=== PATIENT | female | born 1955 | race Caucasian/White ===

== ENCOUNTER 2017-01-02 04:56 | Emergency (ER) | payer MEDICARE ==
[2017-01-02 04:15] LABS: BASOPHILS 0.3 %; BASOPHILS ABSOLUTE 0.02 10/3/uL (0.0-0.16); EOSINOPHILS 0.8 %; EOSINOPHILS ABSOLUTE 0.05 10/3/uL (0.0-0.53); HEMATOCRIT 30.6 % (36.0-48.0); HEMOGLOBIN 9.7 g/dL (12.0-16.0); IMMATURE GRANULOCYTES 0.2 %; IMMATURE GRANULOCYTES ABSOLUTE 0.01 10/3/uL (0.0-0.11); LYMPHOCYTES 6.6 %; LYMPHOCYTES ABSOLUTE 0.39 10/3/uL (0.67-4.30); MEAN CORPUS HGB CONC 31.7 g/dL (32.0-36.0); MEAN CORPUSCULAR HEMOGLOB 24.5 pg (26.0-34.0); MEAN PLATELET VOLUME 9.5 fL (9.2-13.0); MONOCYTES 7.9 %; MONOCYTES ABSOLUTE 0.47 10/3/uL (0.21-1.20); NEUTROPHILS 84.2 %; NEUTROPHILS ABSOLUTE 4.99 10/3/uL (2.02-8.40); PLATELET COUNT 279 10/3/uL (150-400); RBC DISTRIBUTION WIDTH 14.6 % (12.0-16.0); RED CELL COUNT 3.96 10/6/uL (4.0-5.6)
[2017-01-02 04:17] LABS: ER CBC TAT 0 Hrs 16 Mins; MANUAL DIFF NO %; MEAN CORPUSCULAR VOLUME 77.3 fL (80-100); WHITE BLOOD CELLS 5.9 10/3/uL (4.5-10.5)
[2017-01-02 04:30] LABS: A/G RATIO 1.1 (0.7-1.9); ALBUMIN 3.5 G/DL (3.5-5.0); ALKALINE PHOSPHATASE 271 U/L (45-117); BUN (BLOOD UREA NITROGEN) 11 MG/DL (6-23); CALCIUM, SERUM 8.4 MG/DL (8.5-10.4); CHLORIDE, SERUM 105 MMOL/L (96-112); CO2 (CARBON DIOXIDE) 25 MMOL/L (24-34); CREATININE 0.75 MG/DL (0.55-1.02); GFR AFRICAN AMERICAN 100 ML/MIN (>=60); GFR NON AFRICAN AMERICAN 86 ML/MIN (>=60); GLOBULIN 3.3 G/DL (2.5-4.1); GLUCOSE, SERUM 99 MG/DL (60-99); SGOT(AST) 422 U/L (5-40); SGPT(ALT) 226 U/L (5-65); SODIUM, SERUM 139 MMOL/L (135-148); TOTAL BILIRUBIN 0.8 MG/DL (0-1.2); TOTAL PROTEIN 6.8 G/DL (6.0-8.5); TROPONIN I <0.02 NG/ML (<0.05)
[2017-01-02 04:43] LABS: ASCORBIC ACID (UR NOT ORDER) NEG (NEG); BILIRUBIN, URINE NEGATIVE (NEG); ER URINALYSIS TAT 0 Hrs 00 Mins; KETONE, URINE NEGATIVE (NEG); LEUKOCYTE ESTERASE(NOT OR NEG (NEG); NITRITE (URINE) NEG (NEG); WBC (NOT ORDERED) (RFLEX) 1 (0-5)
[~2017-01-02 04:56] MED LIST: ASABAYER PO; B121000P IM/SC; B121000P SC; CHLORZOXAZON500 MG OR; CYMBALTA60 PO; DIL4TAB PO; EFFEX75 PO; EFFEXXR75 PO; ESTRACE1 MG PO; FLUOCINONIDE0.053 TOP; GYNODIOL1 MG PO; GYNODIOL2 MG PO; HALF81 PO; IMDUR30 PO; IRON325 MG PO; LEVOTHYROXIN150 MCG PO; LEVOTHYROXIN175 MCG PO; LEVOTHYROXIN200 MCG PO; MOBIC15 MG PO; MSCONT15 PO; NEUR300 PO; P20 PO; PCET PO; PEP20 PO; PERCOCET1 TA4 PO; SYN1 PO; SYNTHROID200 MCG PO; ULTRAM50 PO; VITAMIN D1000 UNI1 PO; VITAMIN D31000 UNIT PO; ZOFRAN8 PO; [UNRECOGNIZED DRUG - CODE] PO
[2017-01-02 15:07] LABS: % IRON SAT 10 % (20-50); FERRITIN 12 NG/ML (8-252); IRON BINDING CAPACITY 474 MCG/DL (225-410); IRON, SERUM 49 MCG/DL (35-150)
== END 2017-01-02 05:42 | disposition home or self-care (01) ==
LOC: ER 04:56
PROVIDERS: Nurse Practitioner Acute Care
DX: R55 Syncope and collapse (principal); D64.9 Anemia, unspecified; K21.9 Gastro-esophageal reflux disease without esophagitis; F32.9 Major depressive disorder, single episode, unspecified; Z85.528 Personal history of other malignant neoplasm of kidney; Z88.2 Allergy status to sulfonamides; Z88.5 Allergy status to narcotic agent; Z79.899 Other long term (current) drug therapy
CPT/HCPCS: 70450; 74176; 80053; 81001; 82728; 82962; 83540; 83550; 83690; 84484; 85025; 93005; 99284